=== PATIENT | female | born 1960 | race Caucasian/White ===

== ENCOUNTER 2016-07-02 06:54 | Emergency (ER) | payer SELFPAY ==
[~2016-07-02 06:54] MED LIST: ALEVE220 MG; H; MULTIVITAMIN1 CAP
[2016-07-02] MEDS ORDERED: NO HOME MEDICATION XX (07:01)
[2016-07-02] MEDS ORDERED: MIRALAX17 G2 PO (09:00)
[2016-07-02] MEDS ORDERED: NORCO 5-325 TA1 EACH PO (09:00)
[2016-07-11] MEDS ORDERED: MULTIVITAMINS1 EAC6 PO (11:21)
== END 2016-07-02 09:18 ==
LOC: EDMED 06:54
PROC: 2W3DX1Z Immobilization of Left Lower Arm using Splint (ICD-10-PCS; principal; 2016-07-02)
DX: S52.572A Other intraarticular fracture of lower end of left radius, initial encounter for closed fracture (principal); F17.200 Nicotine dependence, unspecified, uncomplicated; W18.30XA Fall on same level, unspecified, initial encounter; Y92.019 Unspecified place in single-family (private) house as the place of occurrence of the external cause

== ENCOUNTER 2016-07-12 09:53 | Day surgery (SDC) | payer OTHER, SELFPAY ==
[~2016-07-12 09:53] MED LIST changes: +MIRALAX17 G2 PO; +MULTIVITAMINS1 EAC6 PO; +NO HOME MEDICATION XX; +NORCO 5-325 TA1 EACH PO
== END 2016-07-12 18:10 ==
LOC: SRG 09:53 → SHSB 09:56 → ORE 13:25 → PACU 16:09 → SHSB 16:40
PROC: 0PSJ04Z Reposition Left Radius with Internal Fixation Device, Open Approach (ICD-10-PCS; principal; 2016-07-12)
DX: S52.502A Unspecified fracture of the lower end of left radius, initial encounter for closed fracture (principal); E87.1 Hypo-osmolality and hyponatremia; D64.9 Anemia, unspecified; F17.210 Nicotine dependence, cigarettes, uncomplicated; W19.XXXA Unspecified fall, initial encounter
CPT/HCPCS: C1713; J0690; J2250; J3010